=== PATIENT | female | born 2000 | race Caucasian/White ===

== ENCOUNTER 2021-07-31 20:20 | Emergency (ER) | payer OTHER ==
[2021-07-31] MEDS ORDERED: Phenazopyridine 100 MG Tab ONE (20:30)
[2021-07-31] MEDS ORDERED: Sulfamethoxazole/Trimethoprim 800-160 MG Tab ONE (20:30)
--- NOTE | 2021-07-31 20:47 | EDM.PDOC ---
ED HPI GENERAL MEDICAL PROBLEM - General Chief Complaint: Genitourinary Problem Stated Complaint: blood in urine Time Seen by Provider: 07/31/21 20:29 Source of Information: Reports: Patient, RN Notes Reviewed History Limitations: Reports: No Limitations - History of Present Illness INITIAL COMMENTS - FREE TEXT/NARRATIVE: This patient presents to the emergency department for evaluation of urinary frequency, urgency, and dysuria. She states she had this earlier in the week and it then went away. She felt better but it returned today. She adds that she noticed blood in her urine today as well. She denies a fever, back pain, nausea, vomiting. She denies other symptoms or concerns. - Related Data Allergies Allergy/AdvReac Type Severity Reaction Status Date / Time No Known Allergies Allergy Verified 07/31/21 20:22 Social & Family History - Recreational Drug Use Recreational Drug Use: No ED ROS GENERAL - Review of Systems Review Of Systems: Comprehensive ROS is negative, except as noted in HPI. ED EXAM, RENAL/ - Physical Exam Exam: See Below Exam Limited By: No Limitations General Appearance: Alert, No Apparent Distress Eye Exam: Bilateral Eye: PERRL Ears: Normal External Exam Nose: Normal Inspection Head: Atraumatic, Normocephalic Neck: Normal Inspection, Full Range of Motion Respiratory/Chest: No Respiratory Distress, No Accessory Muscle Use Back Exam: No: CVA Tenderness (R), CVA Tenderness (L) Neurological: Alert, Oriented Psychiatric: Normal Affect Course - Vital Signs Last Recorded V/S: Last Vital Signs Temp 36.8 C 07/31/21 20:29 Pulse 83 07/31/21 20:29 Resp 18 07/31/21 20:29 BP 124/83 07/31/21 20:29 Pulse Ox 98 07/31/21 20:29 - Re-Assessments/Exams Free Text/Narrative Re-Assessment/Exam: 07/31/21 20:43 This patient presents to the emergency department for evaluation of urinary frequency, urgency, dysuria and hematuria. History and clinical findings are most consistent with a urinary tract infection. Of note her urine was quite cloudy with 3+ blood, positive leukocyte esterase and positive nitrites. Dipstick urinalysis and history are most consistent she is nontoxic appearing with no CVA tenderness, vomiting or fever. Her presentation does not suggest a pyelonephritis, infected stone or renal abscess. There is no indication for further work-up at this time. She was prescribed a 3-day course of Bactrim DS and Pyridium to be used every 6 hours as needed. She is very low risk and this is her first uncomplicated UTI and a culture was not ordered. The patient was stable at the time of discharge. Departure - Departure Time of Disposition: 20:46 Disposition: Home, Self-Care 01 Condition: Good Clinical Impression: UTI, Urinary tract infectious disease - Discharge Information *PRESCRIPTION DRUG MONITORING PROGRAM REVIEWED*: Not Applicable *COPY OF PRESCRIPTION DRUG MONITORING REPORT IN PATIENT PADMINI: Not Applicable Instructions: Urinary Tract Infection, Adult, [id number] Referrals: PCP,Unknown [Primary Care Provider] - Forms: ED Department Discharge Care Plan Goals: Take Bactrim and Pyridium as directed. Sepsis Event Note (ED) - Evaluation Sepsis Screening Result: No Definite Risk - Focused Exam Vital Signs: Vital Signs Temp Pulse Resp BP Pulse Ox 07/31/21 20:29 36.8 C 83 18 124/83 98
== END 2021-07-31 20:40 | disposition home or self-care (01) ==
LOC: LB.ED 20:20
DX: N39.0 Urinary tract infection, site not specified (principal)
CPT/HCPCS: 99283; A9270

== ENCOUNTER 2021-08-20 10:09 | Emergency (ER) | payer OTHER | END 2021-08-20 11:50 | disposition home or self-care (01) | LOC: LB.ED 10:09 | DX: U07.1 COVID-19 (principal) | CPT/HCPCS: 87804; 87804-59; 99283; U0002 ==